=== PATIENT | male | born 1970 | race Caucasian/White ===

== ENCOUNTER 2021-04-22 20:07 | Emergency (ER) | payer BC ==
[~2021-04-22] VITALS: Ht 165 cm; Wt 106.5 kg
[2021-04-22 20:29] LABS: WHITE BLOOD COUNT 6.4 10^3/uL (4.3-11.0)
[2021-04-22 20:30] LABS: BASOPHILS % (AUTO) 1 % (0-10); EOSINOPHILS # (AUTO) 0.2 10^3/uL (0.0-0.3); EOSINOPHILS % (AUTO) 3 % (0-10); HEMATOCRIT 38 % (40-54); HEMOGLOBIN 12.6 g/dL (13.3-17.7); LYMPHOCYTES # (AUTO) 1.6 X 10^3 (1.0-4.0); LYMPHOCYTES % (AUTO) 25 % (12-44); MEAN CORPUSCULAR HEMOGLOBIN 29 pg (25-34); MEAN CORPUSCULAR HGB CONC 34 g/dL (32-36); MEAN CORPUSCULAR VOLUME 85 fL (80-99); MEAN PLATELET VOLUME 10.1 fL (9.0-12.2); MONOCYTES # (AUTO) 0.6 X 10^3 (0.0-1.0); MONOCYTES % (AUTO) 9 % (0-12); NEUTROPHILS % (AUTO) 63 % (42-75); PLATELET COUNT 147 10^3/uL (130-400)
--- NOTE | 2021-04-22 20:36 | ED Lower Extremity ---
General Chief Complaint: Lower Extremity Stated Complaint: RT LEG PAIN Nursing Triage Note: Pt c/o right calf pain x 3 weeks. 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 Pt denies chest pain or SOA. Pt is ambualtory with steady gait and no swelling noted to lower extremities. Source: patient Exam Limitations: no limitations History of Present Illness Date Seen by Provider: Apr 22, 2021 Time Seen by Provider: 20:00 Initial Comments Patient is a 50-year-old [employer] presents with right calf pain for the past 3 weeks. Calf pain is dull and aching worse with movement. Patient denies trauma repetitive strain injury. Denies history of DVT or PE. No chest pain palpitations or shortness of breath. Patient has not been evaluated for this complaint prior to today's visit. Onset: other (3 weeks ago) Pain/Injury Location: right leg Method of Injury: other Modifying Factors: Improves With Other Allergies and Home Medications Patient Home Medication List Home Medication List Reviewed: Yes Review of Systems Constitutional: no symptoms reported Musculoskeletal: muscle pain Past Nxzzjdj-Ndcolh-Cmlfen Hx Patient Social History Use of E-Cig and/or Vaping dev: Yes E-Cig or Vaping type used: Nicotine Use of E-Cig and/or Vaping Toño: Current Everyday User Substance use?: No Alcohol Use?: No Pt feels they are or have been: No Immunizations Up To Date Second COVID19 Vaccination Amadeo: Pfizer 02/2021 Physical Exam Vital Signs Vital Signs - First Documented 04/22/21 20:15 Temp 36.9 Pulse 77 Resp 17 B/P (MAP) 148/87 (107) Pulse Ox 95 O2 Delivery Room Air Capillary Refill : Less Than 3 Seconds Height, Weight, BMI Height: '" Weight: lbs. oz. kg; 39.00 BMI Method: General Appearance: WD/WN, no apparent distress Legs: right leg pain (Right calf), right leg soft tissue tenderness (Right calf); bilateral leg swelling Progress/Results/Core Measures Results/Orders Lab Results Laboratory Tests Test 04/22/21 20:20 Range/Units White Blood Count 6.4 4.3-11.0 10^3/uL Red Blood Count 4.42 4.30-5.52 10^6/uL Hemoglobin 12.6 L 13.3-17.7 g/dL Hematocrit 38 L 40-54 % Mean Corpuscular Volume 85 80-99 fL Mean Corpuscular Hemoglobin 29 25-34 pg Mean Corpuscular Hemoglobin Concent 34 32-36 g/dL Red Cell Distribution Width 12.9 10.0-14.5 % Platelet Count 147 130-400 10^3/uL Mean Platelet Volume 10.1 9.0-12.2 fL Immature Granulocyte % (Auto) 1 % Neutrophils (%) (Auto) 63 42-75 % Lymphocytes (%) (Auto) 25 12-44 % Monocytes (%) (Auto) 9 0-12 % Eosinophils (%) (Auto) 3 0-10 % Basophils (%) (Auto) 1 0-10 % Neutrophils # (Auto) 4.0 1.8-7.8 X 10^3 Lymphocytes # (Auto) 1.6 1.0-4.0 X 10^3 Monocytes # (Auto) 0.6 0.0-1.0 X 10^3 Eosinophils # (Auto) 0.2 0.0-0.3 10^3/uL Basophils # (Auto) 0.0 0.0-0.1 10^3/uL Immature Granulocyte # (Auto) 0.1 0.0-0.1 10^3/uL D-Dimer 0.32 0.00-0.49 UG/ML Sodium Level 134 L 135-145 MMOL/L Potassium Level 4.0 3.6-5.0 MMOL/L Chloride Level 102 98-107 MMOL/L Carbon Dioxide Level 22 21-32 MMOL/L Anion Gap 10 5-14 MMOL/L Blood Urea Nitrogen 29 H 7-18 MG/DL Creatinine 0.86 0.60-1.30 MG/DL Estimat Glomerular Filtration Rate 94 BUN/Creatinine Ratio 34 Glucose Level 129 H 70-105 MG/DL Calcium Level 9.1 8.5-10.1 MG/DL My Orders Orders - STEVEN ARAMBULA DO Cbc With Automated Diff (04/22/21 20:13) Basic Metabolic Panel (04/22/21 20:13) Fibrin Degradation Products (04/22/21 20:13) Vital Signs/I&O 04/22/21 04/22/21 20:15 20:54 Temp 36.9 Pulse 77 70 Resp 17 15 B/P (MAP) 148/87 (107) 127/72 Pulse Ox 95 95 O2 Delivery Room Air Room Air Blood Pressure Mean: 107 Departure Communication (Admissions) Right calf pain/tenderness with i moderate risk for blood clot. Chest pain, shortness of breath or unilateral leg swelling. Will obtain D-dimer. If negative will instruct patient to follow-up with local primary care doctor to receive out patient ultrasound. If positive, will place on Eliquis and instruct patient to follow-up with as an outpatient for ultrasound. Return precautions reviewed. Patient verbalizes understanding agreement discharge instructions prior to departure. Impression Primary Impression: Right calf pain Departure-Patient Inst. Referrals: NO,LOCAL PHYSICIAN (PCP/Family) Primary Care Physician STEVEN ARAMBULA DO Apr 22, 2021 20:36
[2021-04-22 20:47] LABS: CALCIUM 9.1 MG/DL (8.5-10.1); CREATININE SERUM 0.86 MG/DL (0.60-1.30)
[2021-04-22 20:54] VITALS: BP 127/72
== END 2021-04-22 20:55 | disposition home or self-care (01) ==
LOC: ER FS 20:10
DX: M79.661 Pain in right lower leg (principal); F17.290 Nicotine dependence, other tobacco product, uncomplicated
CPT/HCPCS: 36415; 80048; 85025; 85379; 99281